=== PATIENT | male | born 1945 | race Caucasian/White ===

== ENCOUNTER 2021-12-14 09:00 | Outpatient (CLI) | payer BC, MEDICARE ==
[~2021-12-14 09:00] MED LIST: Gadobenate Dimeglumine 529 MG/1 ML (20ML VIAL) ONE
== END 2021-12-14 09:01 | disposition home or self-care (01) ==
LOC: CSHMRI 09:00
PROVIDERS: ATTEND Family Medicine
DX: R93.2 Abnormal findings on diagnostic imaging of liver and biliary tract (principal)
CPT/HCPCS: 74183; 82565